=== PATIENT | female | born 1960 | race Caucasian/White ===

== ENCOUNTER → 2019-08-26 | Outpatient (CLI) | payer MEDICARE, MEDICAID ==
[~2019-08-26] MED LIST: ALBU2.5V8 INH; ESCITALOPRAM OX20 MG PO; FLUT1DIS3 IH; LATA2.5D2 OP; NORT25CA PO
== END | disposition home or self-care (01) ==
LOC: LAB 11:53
PROVIDERS: ATTEND Internal Medicine Gastroenterology
DX: Z11.59 Encounter for screening for other viral diseases (principal)
CPT/HCPCS: U0003-CS

== ENCOUNTER → 2019-08-29 | Day surgery (SDC) | payer MEDICARE, MEDICAID ==
[~2019-08-29] MED LIST changes: +IV RINGERS,LACTATED 1000ML 1,000 ML IV ONE; +PROPOFOL 10 MG/ML (20ML) VIAL. IV ONE
[2019-08-29 13:33] VITALS: BP 116/68
--- NOTE | 2019-09-02 18:06 | PATHOLOGY ---
[facility] Accession Number: [id number] . 01 Material submitted: . colon - RANDOM COLON BX . 01 Clinical history: . Abd. pain . 02 Diagnosis: Colonic mucosa, random colon biopsies: - No significant pathologic abnormalities. (JPM:gwendolyn; 09/02/2019) S 09/02/2019 1530 Local . 02 Comment: Sections of the random colon biopsy reveal multiple segments of colonic mucosa containing a few mucosal-associated lymphoid aggregates. There is no evidence of chronic destructive colitis, lymphocytic colitis, or collagenous colitis. (JPM:gwendolyn; 09/02/2019) . 02 Electronically signed: . Blue Hall MD, Pathologist NPI- [id number] . 01 Gross description: . The specimen is received in formalin, labeled "Chantal, Best, random colon biopsy" and consists of multiple fragments of arechiga tissue measuring 1.9 x 0.6 x 0.2 cm in aggregate which are entirely submitted in A1. ([facility]; 08/29/2019) JFQ/JFQ 08/29/2019 1740 Local . 02 Pathologist provided ICD-10: R10.9 . 02 CPT . 372913 Specimen Comment: A courtesy copy of this report has been sent to [phone] Specimen Comment: [id number] Specimen Comment: Report sent to / DR SOLIZ Performed at: 01 [facility] [address], [place] [id number] MD Cristóbal Youssef MD Phone: [phone] Performed at: 02 [facility] [address] [place], [place] [id number] MD Blue Hall MD Phone: [phone]
== END ==
LOC: ENDOS 11:17
PROVIDERS: ATTEND Internal Medicine Gastroenterology
DX: R10.11 Right upper quadrant pain (principal); K63.89 Other specified diseases of intestine; K64.0 First degree hemorrhoids; Z88.6 Allergy status to analgesic agent; Z88.0 Allergy status to penicillin; Z88.8 Allergy status to other drugs, medicaments and biological substances
CPT/HCPCS: 45380; 88305; J2704

== ENCOUNTER → 2019-10-03 | Outpatient (CLI) | payer MEDICARE, MEDICAID ==
[2019-08-29 13:33] VITALS: BP 116/68
[~2019-10-03] VITALS: Ht 149.9 cm; Wt 57.6 kg
[~2019-10-03] MED LIST changes: -IV RINGERS,LACTATED 1000ML 1,000 ML IV ONE; -PROPOFOL 10 MG/ML (20ML) VIAL. IV ONE; +SINCALIDE 1.15 MCG in IV NORMAL SALINE 50ML 30 ML IV ONE
--- NOTE | 2019-10-03 09:39 | RAD ---
Clinical Indication: Postprandial nausea and vomiting for 5 months. Findings: Duplex sonography of the superior mesenteric artery and the celiac artery and the abdominal aorta including cid scale and color flow and spectral waveform analysis was performed. Biphasic waveforms are seen. Superior mesenteric artery Proximal aspect: Peak systolic flow velocity 152 cm/sec Midaspect: Peak systolic flow velocity 219 cm/sec Distal aspect: Peak systolic flow velocity 214 cm/sec Celiac artery: Peak systolic flow velocity 158 cm/sec Abdominal aorta: Peak systolic flow velocity 77 cm/sec No focal aneurysmal dilatation of the abdominal aorta is seen. Therefore, the peak systolic flow velocity ratio of the superior mesenteric artery with respect to the aorta is 2.8. Normal is less than 3.0. Therefore, the peak systolic flow velocity ratio of the celiac artery with respect to the aorta is 2.1. Normal is less than 3.0. Impression: No occlusion or flow-limiting stenosis is identified. Electronically signed by: Bird Noble MD (10/03/2019 9:36 AM) [id number]
--- NOTE | 2019-10-03 10:20 | RAD ---
NM HEPATOBILIARY SCAN W PHARM History: Right upper quadrant pain. Comparison: Nausea and vomiting. Right upper quadrant pain. Technique: 5.5 mCi technetium 99m Choletec was administered intravenously and spot views were obtained on the gamma camera for a Nuclear Medicine hepatobiliary scan. 1.15 mcg of CCK drip was administered over 30 minutes and the region of interest was drawn around the gallbladder and gallbladder ejection fraction was calculated. Findings: There is rapid uptake of activity from the blood pool and concentration in the liver. Activity seen in the gallbladder at 20 minutes and small bowel at 55 minutes. There is a rapid response of the gallbladder to CCK and the gallbladder ejection fraction is 67% which is normal. Impression: 1. Normal hepatobiliary scan. Normal gallbladder ejection fraction. Electronically signed by: Isidoro Marshall DO (10/03/2019 10:17 AM) [id number]
== END | disposition home or self-care (01) ==
LOC: US 06:29
PROVIDERS: ATTEND Internal Medicine Gastroenterology
DX: R11.2 Nausea with vomiting, unspecified (principal); R10.11 Right upper quadrant pain
CPT/HCPCS: 76770; 78227; A9537; J2805

== ENCOUNTER → 2019-10-28 | Outpatient (CLI) | payer MEDICARE, MEDICAID ==
[2019-08-29 13:33] VITALS: BP 116/68
[~2019-10-28] MED LIST changes: +OXYC1TAB15 PO; -SINCALIDE 1.15 MCG in IV NORMAL SALINE 50ML 30 ML IV ONE
== END | disposition home or self-care (01) ==
LOC: LAB 13:39
PROVIDERS: ATTEND Surgery
DX: Z20.828 Contact with and (suspected) exposure to other viral communicable diseases (principal)
CPT/HCPCS: U0003-CS

== ENCOUNTER 2019-10-31 06:04 | Day surgery (SDC) | payer MEDICARE, MEDICAID ==
[~2019-10-31] VITALS: Ht 162.6 cm; Wt 53.5 kg
[~2019-10-31 06:04] MED LIST changes: +ACETAMINOPHEN 500 MG TABLET PO PRN; +CLINDAMYCIN 900MG PREMIX 50 ML IV PRN; -OXYC1TAB15 PO
[2019-10-31] MEDS ORDERED: IV RINGERS,LACTATED 1000ML 1,000 ML IV SCH (07:00)
[2019-10-31] MEDS ORDERED: ONDANSETRON PF 4 MG/2 ML VIAL. IV PRN (07:00)
[2019-10-31] MEDS ORDERED: HYDROmorphone 2 MG/ML VIAL IV PRN (07:00)
[2019-10-31] MEDS ORDERED: MORPHINE SULFATE 2 MG/ML VIAL. IV PRN (07:00)
[2019-10-31] MEDS ORDERED: LIDOCAINE 1% PF 2 ML VIAL. ID PRN (07:00)
[2019-10-31] MEDS ORDERED: fentaNYL PF VIAL 100 MCG/2 ML VIAL IV PRN ×2 (07:00)
[2019-10-31] MEDS ORDERED: PROCHLORPERAZINE 10 MG/2 ML VIAL. IV PRN (07:00)
[2019-10-31] MEDS ORDERED: BUPIVACAINE-EPI 0.5%-1:200000 MPF 30 ML VIAL. ONE (07:27)
[2019-10-31] MEDS ORDERED: IOHEXOL 300 MG/ML 50 ML VIAL. ONE (07:27)
[2019-10-31] MEDS ORDERED: ROCURONIUM 50 MG/5 ML VIAL. ONE (07:28)
[2019-10-31] MEDS ORDERED: KETOROLAC 30 MG/ML VIAL. ONE (07:28)
[2019-10-31] MEDS ORDERED: LIDOCAINE 2% PF 5 ML VIAL. ONE (07:28)
[2019-10-31] MEDS ORDERED: PROPOFOL 10 MG/ML (20ML) VIAL. IV ONE (07:28)
[2019-10-31] MEDS ORDERED: PROPOFOL 50 ML IV ONE (07:28)
[2019-10-31] MEDS ORDERED: MIDAZOLAM HCL/PF 2 MG/2 ML VIAL. ONE (07:28)
[2019-10-31] MEDS ORDERED: SURGICEL HEMOSTAT 4X8 EACH. ONE (07:28)
[2019-10-31] MEDS ORDERED: ONDANSETRON PF 4 MG/2 ML VIAL. ONE (07:28)
[2019-10-31] MEDS ORDERED: REMIFENTANIL 1 MG VIAL. IV ONE (07:31)
[2019-10-31] MEDS ORDERED: FAMOTIDINE 20 MG/2 ML VIAL ONE (07:35)
[2019-10-31] MEDS ORDERED: PHENYLEPHRINE 10 MG/ML VIAL. ONE (07:35)
[2019-10-31] MEDS ORDERED: GLYCOPYRROLATE 1 MG/5 ML VIAL. ONE (08:04)
[2019-10-31] MEDS ORDERED: NEOSTIGMINE METHYLSULFATE 5 MG/5 ML SYRINGE. ONE (08:04)
--- NOTE | 2019-10-31 08:33 | PDOC4 ---
Operative Note Operative Note Date: October 31, 2019 at 08 30 Preoperative diagnosis: Biliary dyskinesia Postoperative diagnosis: Same Procedure: Laparoscopic cholecystectomy Specimen: Gallbladder Dictation: Patient is 59-year-old female with right upper quadrant abdominal pain and an abnormal HIDA scan. Procedure of laparoscopic cholecystectomy was explained to the patient detail risk benefits were also discussed including bleeding infection injury to intra-abdominal contents possible necessitating further or open operations alternatives to this procedure also discussed with the patient who seemed to understand and gave both verbal and written consent to have the procedure performed. Patient was taken to the operating room placed in the supine position general anesthesia was initiated once patient was sleeping intubated her abdomen was prepped and draped usual sterile fashion using ChloraPrep. An area just below the umbilicus was injected with half percent Marcaine with epinephrine incision was made 11 blade scalpel and a varies needle was placed within the abdomen creating pneumoperitoneum once this was complete the millimeter port was placed and a 5 mm camera was placed within the abdomen was noted that she had quite a few adhesions to the anterior abdominal wall around the umbilicus area and in the right upper quadrant 5 mm port was placed in the epigastrium a 5 mm port was placed in the right midabdomen and a 5 mm port was placed in the right lateral abdomen. Some of adhesions around the umbilicus were taken down with sharp dissection. The dome of the gallbladder is grasped retracted cephalad the infundibulum the gallbladder is grasped tract and laterally exposing the triangle that here tissues of the triangle were taken down with blunt dissection exposing the cystic duct and cystic artery both were doubly clipped and transected the gallbladder is taken off the liver with hook electrocautery placed in Endo Catch bag removed and the umbilicus right upper quadrant was irrigated suctioned dry hemostasis deemed to be appropriate the pneumoperitoneum was reduced all ports were removed the fascial defect at the umbilicus was closed with a [id number] 0 Vicryl suture and the skin was reapproximated all port sites for subcuticular Monocryl Mastisol Steri-Strips and island dressings were applied. Patient was awakened and extubated in the operating room taken to recovery in stable condition all sponge instrument needle counts listed as correct estimated blood loss 5 mL MONY CARDONA MD Oct 31, 2019 08:33
--- NOTE | 2019-10-31 08:35 | DISCH ---
DISCHARGE INSTRUCTIONS Condition on Discharge Condition on Discharge: Stable Activity After Discharge Activity Instructions for Disc: Avoid exertion Other activity instructions: No lifting more than 20 pounds for 2 weeks Diet after Discharge Diet after Discharge: Low Fat Wound Incision Care Other wound/incision instructi: May shower in 24 hours Contacting the after DC Call your doctor for: If your condition worsens Follow-Up Follow up with: Dr. Cardona in 2 weeks MONY CARDONA MD Oct 31, 2019 08:35
[2019-10-31] MEDS ORDERED: oxyCODONE/APAP 5/325 1 TAB TABLET ONE (08:51)
[2019-10-31] MEDS ORDERED: fentaNYL PF VIAL 100 MCG/2 ML VIAL ONE (08:52)
[2019-10-31] MEDS ORDERED: PROCHLORPERAZINE 10 MG/2 ML VIAL. ONE (08:53)
[2019-10-31] MEDS ORDERED: oxyCODONE/APAP 5/325 1 TAB TABLET PO ONE (09:00)
[2019-10-31] MEDS ORDERED: OXYC1TAB15 PO (09:02)
[2019-10-31 09:30] VITALS: BP 136/68
--- NOTE | 2019-11-05 11:07 | PATHOLOGY ---
[facility] Accession Number: [id number] . 01 Material submitted: . gallbladder - GALLBLADDER . 01 Clinical history: . BILIARY DYSKENSIA . 02 Diagnosis: Gallbladder, excision: - Mild chronic cholecystitis; negative for malignancy. (MLK/db; 11/01/2019) LBQ 11/01/2019 1737 Local . 02 Electronically signed: . Tiki Duong MD, Pathologist NPI- [id number] . 01 Gross description: . Received in formalin labeled "Chantal, Best, gallbladder" is an intact cholecystectomy specimen measuring 7.0 x 3.7 x 2.8 cm. The serosa is arechiga-green and smooth and the specimen is opened to reveal green-brown velvety mucosa without polyps or masses. The average wall thickness is 0.1 cm. Calculi are not present. Commercial Artist sections of the fundus and body and the cystic duct margin are submitted in A1. ([facility]; 10/31/2019) [facility] 10/31/2019 1709 Local . 02 Pathologist provided ICD-10: K81.1 . 02 CPT . 673643 Specimen Comment: A courtesy copy of this report has been sent to [phone] Specimen Comment: [phone] Specimen Comment: Report sent to / Performed at: 01 [facility] [address], [place] [id number] MD Cristóbal Youssef MD Phone: [phone] Performed at: 02 [facility] [address] [place], [place] [id number] MD Blue Hall MD Phone: [phone]
== END 2019-10-31 09:46 | disposition home or self-care (01) ==
LOC: SURG 06:04
PROVIDERS: ATTEND Surgery
DX: K81.1 Chronic cholecystitis (principal); K82.8 Other specified diseases of gallbladder; Z88.0 Allergy status to penicillin; Z88.8 Allergy status to other drugs, medicaments and biological substances; Z79.899 Other long term (current) drug therapy
CPT/HCPCS: 47562; A7015; J0780; J1885; J2250; J2370; J2405; J2704; J2710; J3010; J3490; J7030; Q9967

== ENCOUNTER → 2020-03-18 | Outpatient (CLI) | payer MEDICARE, MEDICAID ==
[~2020-03-18] MED LIST changes: -ACETAMINOPHEN 500 MG TABLET PO PRN; -CLINDAMYCIN 900MG PREMIX 50 ML IV PRN; +CYCL10TA2 PO; +DICY10CA3 PO; +HYDR-2765 PO; +IOHEXOL 180 MG/ML 10 ML VIAL. INT ART ONE; +OXYC1TAB15 PO; +PROM25TA10 PO
--- NOTE | 2020-03-18 13:45 | RAD ---
EXAM: Fluoroscopically guided right shoulder injection for CT arthrography. HISTORY: 59-year-old woman with right shoulder pain. TECHNIQUE: The risks and benefits of the procedure were discussed with the patient and written and ve rbal consent were obtained. A time out procedure was performed. Fluoroscopic imaging of the right shoulder was performed. The overlying skin was sterilely prepped an d infiltrated with 1% lidocaine for local anesthesia. A 22-gauge spinal needle was then advanced into the joint space under fluoroscopic guidance. Intra-articular positioning was confirmed with a small injection of iodinated contrast. 12 mL of 1:1 dilution of Omnipaque 180 contrast with saline was in jected under fluoroscopic control. The joint capsule was further distended with room air. Instrumenta tion was withdrawn and a sterile dressing placed. There were no immediate complications. The patient was transferred to the CT suite for additional imaging. Fluoroscopy time 0.6 minutes. 6 images were o btained. Refer to the CT report for additional detail. IMPRESSION: Successful fluoroscopically guided right shoulder injection for MR arthrography. Please r efer to the separate CT report for additional detail. Electronically signed by: Sofia Maynard MD (03/18/2020 1:43 PM) [id number]
--- NOTE | 2020-03-18 17:29 | RAD ---
PROCEDURE: CT arthrogram Right Shoulder without IV contrast INDICATION: Reason: right shoulder pain . COMPARISON: Earlier same day right shoulder contrast injection TECHNIQUE: Axial CT of the right shoulder was performed following preprocedural intra-articular admin istration of iodinated contrast. Multiplanar reformats were then performed and reviewed. All CT scans performed at this facility utilize dose optimization techniques as appropriate to the exam, includin g the following: Automated exposure control and adjustment of the mA and/or KV according to patient s ize (this includes techniques or standardized protocols for targeted exams where dose is indication/r ariel for exam). IV CONTRAST: Not administered. However intra-articular contrast was administered and is reported sepa rately. FINDINGS: OSSEOUS: No evidence of fracture, dislocation, or bone destruction. No infiltrative marrow processes are identified. SUPRASPINATUS TENDON: Unremarkable. INFRASPINATUS TENDON: Unremarkable. SUBSCAPULAR TENDON: Unremarkable. TERES MINOR TENDON: Unremarkable. ROTATOR CUFF MUSCLES: Normal muscle bulk. No fatty infiltration identified. LONG HEAD BICEPS TENDON: Tendon is unremarkable and well positioned in the intertubercular groove wit h normal insertion upon the glenoid labrum. Some injection related contrast material is present along its intra-articular superficial fibers. GLENOID LABRUM: A posterior-inferior labral tear is apparent, best illustrated on axial image 34 seri es 3. There is also chondromalacia in the articular surface of the glenoid rim posteriorly, associate d with a small posterior inferior subchondral cyst. No significant paralabral cyst. GLENOID JOINT: No loose bodies. ACROMIOCLAVICULAR JOINT: Mild degenerative changes at the acromioclavicular joint with subchondral cy stic formation present at the superior aspect of the acromial margin. DELTOID MUSCLE: Unremarkable. OTHER: The included lungs show mild centrilobular pattern emphysema and poorly defined centrilobular nodules and groundglass opacities IMPRESSION: 1. Posterior labral tear and minimal early degenerative changes in the right glenohumeral and acromio clavicular joints. 2. There is no evidence of a full-thickness rotator cuff tear. CT is limited in evaluation for tendin opathy or tendinosis. 3. Incidental mild centrilobular emphysema and ill-defined groundglass nodules in the visualized lung s, suggesting possible hypersensitivity pneumonitis or respiratory bronchiolitis. Correlate clinicall y. Electronically signed by: Sofia Maynard MD (03/18/2020 5:27 PM) [id number]
== END | disposition home or self-care (01) ==
LOC: RAD 09:18
PROVIDERS: ATTEND Orthopaedic Surgery
DX: M25.511 Pain in right shoulder (principal); J44.9 Chronic obstructive pulmonary disease, unspecified; M19.90 Unspecified osteoarthritis, unspecified site; F41.9 Anxiety disorder, unspecified; F32.9 Major depressive disorder, single episode, unspecified; Z90.710 Acquired absence of both cervix and uterus; Z98.51 Tubal ligation status; Z98.890 Other specified postprocedural states; Z79.899 Other long term (current) drug therapy; Z87.891 Personal history of nicotine dependence; Z88.0 Allergy status to penicillin; Z88.1 Allergy status to other antibiotic agents; Z88.8 Allergy status to other drugs, medicaments and biological substances
CPT/HCPCS: 20605; 20610; 73201; 77002

== ENCOUNTER → 2020-05-14 | Outpatient (CLI) | payer MEDICARE, MEDICAID ==
[~2020-05-14] MED LIST changes: -IOHEXOL 180 MG/ML 10 ML VIAL. INT ART ONE
== END ==
LOC: LAB 13:16
PROVIDERS: ATTEND Orthopaedic Surgery
DX: Z01.812 Encounter for preprocedural laboratory examination (principal); Z20.822 Contact with and (suspected) exposure to COVID-19; M24.111 Other articular cartilage disorders, right shoulder; M75.41 Impingement syndrome of right shoulder
CPT/HCPCS: U0003

== ENCOUNTER 2020-05-18 05:57 | Day surgery (SDC) | payer MEDICARE, MEDICAID ==
[~2020-05-18] VITALS: Ht 154.9 cm; Wt 47.2 kg
[~2020-05-18 05:57] MED LIST changes: -PROM25TA10 PO
[2020-05-18] MEDS ORDERED: fentaNYL PF VIAL 100 MCG/2 ML VIAL IVP PRN (06:00)
[2020-05-18] MEDS ORDERED: PROCHLORPERAZINE 10 MG/2 ML VIAL. IVP PRN (06:00)
[2020-05-18] MEDS ORDERED: IV RINGERS,LACTATED 1000ML 1,000 ML IV SCH (06:00)
[2020-05-18] MEDS ORDERED: HYDROmorphone 2 MG/ML VIAL IVP PRN (06:00)
[2020-05-18] MEDS ORDERED: CLINDAMYCIN 900MG PREMIX 50 ML IV PRN (06:00)
[2020-05-18] MEDS ORDERED: MORPHINE SULFATE 2 MG/ML VIAL. IVP PRN (06:00)
[2020-05-18] MEDS ORDERED: LIDOCAINE 2% PF 5 ML VIAL. ONE ×2 (06:40→06:54)
[2020-05-18] MEDS ORDERED: PROPOFOL 10 MG/ML (20ML) VIAL. IV ONE (06:40)
[2020-05-18] MEDS ORDERED: MIDAZOLAM HCL/PF 2 MG/2 ML VIAL. ONE (06:41)
[2020-05-18] MEDS ORDERED: fentaNYL PF VIAL 100 MCG/2 ML VIAL ONE ×2 (06:41→09:16)
[2020-05-18] MEDS ORDERED: ROCURONIUM 100 MG/10 ML VIAL. ONE (06:46)
[2020-05-18] MEDS ORDERED: EPINEPHrine VIAL 30 MG/30 ML VIAL ONE (07:03)
[2020-05-18] MEDS ORDERED: BUPIVACAINE-EPI 0.25% 30 ML VIAL KIT. ONE ×2 (07:03→07:04)
[2020-05-18] MEDS ORDERED: REMIFENTANIL 2 MG VIAL. IV ONE (07:09)
[2020-05-18] MEDS ORDERED: PHENYLEPHRINE 10 MG/ML VIAL. ONE ×2 (07:44)
[2020-05-18] MEDS ORDERED: PROPOFOL 0 ML IV ONE (08:27)
[2020-05-18] MEDS ORDERED: PHENYLEPHRINE in 0.9% NACL PF 1 MG/10 ML SYRINGE. IV ONE ×2 (08:28→09:06)
[2020-05-18] MEDS ORDERED: PROPOFOL 50 ML IV ONE ×2 (08:28)
[2020-05-18] MEDS ORDERED: ONDANSETRON PF 4 MG/2 ML VIAL. ONE (08:28)
[2020-05-18] MEDS ORDERED: NEOSTIGMINE METHYLSULFATE 5 MG/5 ML SYRINGE. ONE (08:46)
[2020-05-18] MEDS ORDERED: GLYCOPYRROLATE 1 MG/5 ML VIAL. ONE (08:46)
[2020-05-18] MEDS: fentaNYL PF VIAL 100 MCG/2 ML VIAL IVP PRN ×2 (09:30→09:41)
--- NOTE | 2020-05-18 09:38 | PDOC4 ---
Operative Note Operative Note Date of Procedure: May 18, 2020 Pre-Op Diagnosis: * Impingement syndrome of right shoulder - M75.41 * Other specified disorders of tendon, right shoulder (tendonitis) M67.813 * Degenerative tear of glenoid labrum of right shoulder - M24.111 * Primary osteoarthritis, right shoulder - M19. 011 Post-Op Diagnosis: * Impingement syndrome of right shoulder - M75.41 * Other specified disorders of tendon, right shoulder (tendonitis) M67.813 * Degenerative tear of glenoid labrum of right shoulder - M24.111 * Primary osteoarthritis, right shoulder - M19. 011 Procedure: * Arthroscopy, right shoulder, surgical decompression of subacromial space, with partial acromioplasty CPT 88392 * Arthroscopy, surgical; debridement, extended, 3 or more discrete structures, including osterior, anterior and superior labrum (SLAP lesion) and debridement of biceps tendon and debridement of rotator cuff CPT 16041 * Arthroscopy, right shoulder, surgical; distal claviculectomy 10 mm, including distal articular surface (Yanick procedure) CPT 01005 Surgeon: Val Brownlee MD Edge [employer] Offbearer: SAMIA Cabello Anesthesia: General EBL: 50 mL Specimens Obtained: none Complications: none Drains: none Findings: The glenohumeral joint showed degenerative labral tearing of the superior, anterior, and posterior labrum which was debrided, and was not amenable to a repair. There was minimal bicipital tenosynovitis, amenable to arthroscopic debridement which was performed. There was a normal-appearing rotator cuff from the articular view with no detachment or significant tendinitis. The subacromial space showed extensive bursitis. There was diffuse and extensive superficial rotator cuff tendinitis, which did not appear amenable to any type of repair and which was debrided with the shaver. There was extensive impingement and a very prominent anterior acromion, and a very arthritic acromioclavicular joint which was also successfully decompressed to alleviate further tendon compromise. Indications for Procedure: This 59-year-old woman has persistent shoulder pain despite nonoperative treatment. Her CT scan shows a posterior labral tear and acromioclavicular joint osteoarthritis, and she has impingement syndrome. We reviewed her report together and discussed the natural history of the condition along with risks, benefits, and alternatives to treatment. Given her failure of more conservative measures and likely continued pain without intervention, my recommendation is surgery. Plan for right shoulder arthroscopy with probable subacromial decompression and distal clavicle excision as well as posterior labrum debridement or repair. Rotator cuff repair may be possible depending on intraoperative findings. We discussed the potential risks of infection, neurovascular injury, fracture, bleeding, need for revision surgery, or other potential surgical or anesthetic complications. We also discussed healing expectations including potential postoperative use of DonJoy sling, need for physical therapy, and refrain from overhead lifting for 3 months. I described that this is a more difficult surgery for patients and she may take up to a year to heal. Procedure in Detail: The patient was identified in the preoperative holding area. The correct right shoulder was marked by me. The patient was taken to the operating room where general anesthesia was used. The patient was positioned in the beachchair position with the bony prominences well-padded and the eyes protected. Preoperative antibiotics were given intravenously. A timeout procedure was performed. Under sterile technique 20 mL of bupivacaine with epinephrine was injected into the subacromial space and glenohumeral joint. The limb was then thoroughly prepared with surgical ChloraPrep solution circumferentially. Sterile waterproof arthroscopy shoulder drapes were applied, along with an impervious stockinette over the arm, and a Spider arm parks. Posterior, posterolateral, lateral, and anterior arthroscopy portals were used. The glenohumeral joint shows mild degenerative changes of the glenoid articular cartilage. There are extensive degenerative tears of the anterior labrum, posterior labrum, and superior labrum. Extensive shaving debridement was performed, and there was no repairable tear. The biceps tendon showed mild tendinitis, and shaving debridement was performed without extensive tendon removal, and therefore no need for biceps tenodesis. The rotator cuff showed an intact insertion at the greater tuberosity with no evidence of distal tendinitis or detachment or evidence of cuff tear, and no marker suture was used. The more proximal tendon and muscle did have some degenerative fraying and shaving debridement was performed slightly proximal to the muscle tendon junction. The subacromial space was entered. The anterior acromion was very prominent. The [employer] Edge thermal energy bipolar device was used for hemostasis and to resect the undersurface periosteum exposing the prominent anterior acromion. There was extensive inflamed bursa. A 6.0 mm oval kisha was used for the acromioplasty. A three-stage acromioplasty was performed, with the kisha first la terally, removing anterior acromion, using the distal clavicle as a reference. The kisha was then placed in the posterior portal, and a cutting block technique was used for smoothing of the lateral edge of the acromion tapering the anterior acromion into a Bigliani type I configuration. Final smoothing of the acromion was performed with the kisha again in the lateral portal, and direct arthroscopic visualization. The previously very tight subacromial space was now nicely decompressed. This completes CPT 10324, subacromial decompression and acromioplasty. The distal clavicle was arthritic and prominent. The motorized bur was used to remove 10 mm of distal clavicle bone, including the entire articular surface of the distal clavicle. The thermal energy device was used for hemostasis. The rotator cuff was examined after resection of bursa. There is extensive partial-thickness tendinitis and superficial tears of the entire supraspinatus and infraspinatus tendon, without any detachment, and without ability to perform a suture repair. The decompression should help alleviate the cause of these changes, and ultimately the tendon should be able to heal, but this may take many months for pain to resolve because of the extensive but broad area of tendon abrasion. Copious saline irrigation was used. The arthroscopic instruments were removed and the shoulder was drained of fluid. My assisant repaired the skin with #3-0 Prolene. He injected an additional 30 mL of bupivacaine with epinephrine. He placed Xeroform and bulky sterile dressings. He then applied a and arm sling. There were no apparent complications. Needle and sponge counts were correct. VAL BROWNLEE MD May 18, 2020 09:38
[2020-05-18] MEDS ORDERED: oxyCODONE/APAP 5/325 1 TAB TABLET PO ONE ×2 (10:00)
[2020-05-18] MEDS ORDERED: PROM25TA10 PO (10:01)
[2020-05-18] MEDS ORDERED: OXYC1TAB15 PO (10:02)
[2020-05-18 10:16] VITALS: BP 105/53
== END 2020-05-18 11:05 | disposition home or self-care (01) ==
LOC: SURG 05:57
PROVIDERS: ATTEND Orthopaedic Surgery
DX: M75.41 Impingement syndrome of right shoulder (principal); M67.813 Other specified disorders of tendon, right shoulder; M24.111 Other articular cartilage disorders, right shoulder; M19.011 Primary osteoarthritis, right shoulder; I10 Essential (primary) hypertension; J44.9 Chronic obstructive pulmonary disease, unspecified; F41.9 Anxiety disorder, unspecified; F32.9 Major depressive disorder, single episode, unspecified; Z90.49 Acquired absence of other specified parts of digestive tract; Z98.890 Other specified postprocedural states; Z79.899 Other long term (current) drug therapy; Z87.891 Personal history of nicotine dependence; Z72.89 Other problems related to lifestyle; Z88.0 Allergy status to penicillin; Z88.1 Allergy status to other antibiotic agents; Z88.8 Allergy status to other drugs, medicaments and biological substances
CPT/HCPCS: 29823; 29824; 29826; A4213; A4565; A4928; A4930; J0171; J2250; J2370; J2405; J2704; J2710; J3010; J3490; A4222; A4223; A4452; A4618; A4623

== ENCOUNTER → 2020-10-21 | Outpatient (CLI) | payer MEDICARE, MEDICAID ==
[~2020-10-21] MED LIST changes: +IOHEXOL 180 MG/ML 10 ML VIAL. ONE; +PROM25TA10 PO; +methylPREDNISolone ACETATE 80 MG/ML VIAL. ONE
--- NOTE | 2020-10-21 12:09 | PDOC1 ---
INITIAL PAIN CONSULT DATE OF SERVICE: DOS: DATE: 10/21/20 TIME: 12:02 CHIEF COMPLAINT: Chief Complaint: Neck and right upper extremity pain HISTORY OF PRESENT ILLNESS: 60-year-old female presents history of pain in the base the neck and right upper extremity for approximately 4 months not resolve any specific injury or accident that she is aware but getting gradually worse over time and is been radiating into the right upper extremity mostly in the anterior deltoid anterior biceps also the posterior triceps and into the shoulder blade on the right side as well as into the forearm both anteriorly and posteriorly with numbness and tingling in all the fingers on the right side patient reports is worse with repetitive motions reaching, lifting items, reaching her hand over her right head and weightbearing. Patient reports no obvious motor loss but significant fatigability the right arm compared to the left. Patient reports constant sharp stabbing throbbing and shooting in the right arm tingling and numbness in the right hand with radiating pain in the arm aching and cold sensation at times the base of neck and shoulder sometimes worse at the end of the day or at night patient reports it wakes her from sleep about 3 times a night does not affect her bowel bladder control does affect her ability to walk patient reports she has had previous treatment in [place] with good response epidural injections also has had physical therapy chiropractic treatment has had counseling and exercise she still doing exercises she learned in physical therapy has not had any formal therapy recently patient is taking nortriptyline which does decrease the pain is taking that just at night. Patient rates her disability rating 0-10 10 being the worst is an 8 with family responsibilities and recreation 6 with social act ivity 7 with self-care and 6 of life support activities. Patient had a CT scan of the cervical spine showing moderate bilateral neuroforaminal narrowing at C4- 5 moderate left neuroforaminal narrowing C5-6. PAST MEDICAL HISTORY: PMH: Dizziness, cigarette smoking, osteoporosis, vertigo PREVIOUS SURGERIES: Past Surgical Hx: Lumbar spinal cord stimulator placement 2015 Hysterectomy 1988 Cervical discectomy 2012 Cholecystectomy 2019 Right shoulder scope 2020 Appendectomy 1991 CURRENT MEDICATIONS: Current Meds: Active Scripts Medications Dose Route/Sig Max Daily Dose Days Date Category Dicyclomine Hcl 10 Mg Capsule 10 Mg PO BID 05/14/20 Reported Proair Hfa Inhaler (Albuterol Sulfate) 8.5 Gm Hfa.aer.ad 1 Puff INH PRN Q6HRS PRN 08/29/19 Reported Xalatan (Latanoprost) 2.5 Ml Drops 1 Drop OP HS 08/29/19 Reported Escitalopram Oxalate 20 Mg Tablet 20 Mg PO DAILY 08/29/19 Reported Nortriptyline Hcl 25 Mg Capsule 50 Mg PO HS 08/29/19 Reported ALLERGIES; Allergies: Coded Allergies: Penicillins (Verified Allergy, Severe, throat swelling, 10/21/20) tetracycline (Verified Allergy, Intermediate, Hives, 05/18/20) watermelon (Verified Allergy, Intermediate, 10/21/20) milk (Verified Adverse Reaction, Intermediate, Diarrhea, 10/21/20) aspirin (Verified Adverse Reaction, Unknown, Nausea and Vomiting, 10/21/20) prednisone (Verified Adverse Reaction, Unknown, "psychotic break", 10/21/20) FAMILY HISTORY: Family Hx: Cancers SOCIAL HISTORY: Social Hx: Patient is under alcohol smokes about 3 cigarettes a day on average and has for 20+ years patient reports he does not use any illegal illicit or recreational drugs is single has 1 child living at home lives locally in [facility]. REVIEW OF SYSTEMS: ROS: Positive for those items mentioned in history of present illness, all systems are reviewed, otherwise negative ,and are complete full and well-documented on patient's chart. PHYSICAL EXAM: VS: Blood pressure is 117/68 pulse 94 respirations 18 temperature 98.6 F height is 4 feet 11 inches weight is 93 pounds PE: PHYSICAL EXAMINATION: GENERAL: The patient is awake, alert, oriented, appropriate, very pleasant in demeanor. HEENT: Shows normocephalic, atraumatic. Extraocular movements are intact and symmetrical. Oral cavity: Mucous membranes moist and pink. Dentition is intact. NECK: Shows anterior throat supple without palpable lymphadenopathy noted. Swallow reflex symmetrical. CHEST: Shows normal on inspection. Breath sounds are clear bilaterally, no rales rhonchi or wheezes auscultated bilaterally. HEART: Shows S1, S2 clear. No murmurs auscultated. ABDOMEN: Soft, nontender, nondistended, flat. No palpable organomegaly is noted. No rebound or guarding demonstrated. BACK: Shows spine grossly in the midline. Normal-appearing cervical lordotic curvature. Cervical paraspinous muscles show symmetrical with inspection, on palpation some moderate tenderness diffusely bilaterally diffusely without significant radiation. Patient has good rotation motion cervical spine with some moderate tenderness with far right lateral rotation past 45 degrees but not left. Patient shows full rotation with extension and forward flexion with minor tenderness with forward flexion in the right base of the neck only. There is slightly increased thoracic kyphosis, some minor flattening of the lumbar lordotic curvature. EXTREMITIES: Upper extremities show deep tendon reflexes 2+ in the biceps and triceps tendons. 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 Peripheral pulses are 2+ radial. No peripheral edema is noted bilaterally. Upper extremities are warm and dry to touch, equal in color and appearance. Shoulder shrug strong intact without loss of strength on resistance bilaterally as is abduction of the shoulders 90 degrees without loss of strength on resistance. SKIN: Shows warm and dry, good turgor. No edema. No sores, rashes or bruising throughout. IMPRESSION: Impression: 60-year-old female with approximate 4-month history of pain base of neck right upper extremity in a radicular fashion. CT scan cervical spine as noted History of osteoporosis Dizziness Cigarette smoking Asthma Plan: Options were discussed with the patient including conservative management physical therapies interventional techniques. Patient would like to proceed with techniques. We discussed a cervical epidural steroid injections description as well as anatomical models described the procedure. Risks were discussed including but not limited to: Bleeding, infection, possibility of epidural hematoma and subsequent neurological compromise, dural puncture, headaches, spinal cord and/or nerve damage, side effects of steroid medication, and poor results regarding pain control. Patient understands and wished to proceed. Patient will return to the clinic in approximately 2 weeks for follow- up, was counseled as to return appointment activity level and side effects to be aware of. Procedure cervical epidural steroid injection at the C6-7 level, using local anesthetic under sterile prep and drape using C-arm fluoroscopic guidance under local anesthesia medications injected ;120 mg Depo-Medrol +5 mL normal saline and 2 mL contrast; condition at discharge is stable patient tolerated procedure well. and had no complications JOSÉ RUIZ MD Oct 21, 2020 12:09
--- NOTE | 2020-10-21 12:09 | PDOC4 ---
Procedure Note: ICD 10 Code: ICD 10 Code: M54.12 M50.30 M 96.1 Procedure Note: Patient was consented for cervical epidural steroid injection with fluoroscopic guidance. Risks were discussed including but not limited to: Bleeding, infection, possibility of epidural hematoma and subsequent neurological compromise, dural puncture, headaches, spinal cord and/or nerve damage, side effects of steroid medication, and poor results regarding pain control. Patient understands and wished to proceed. Procedure cervical epidural steroid injection at the C6-7 level, using local a nesthetic under sterile prep and drape using C-arm fluoroscopic guidance under local anesthesia medications injected ;120 mg Depo-Medrol +5 mL normal saline and 2 mL contrast; condition at discharge is stable patient tolerated procedure well. and had no complications JOSÉ RUIZ MD Oct 21, 2020 12:09
== END | disposition home or self-care (01) ==
LOC: PNCL 10:17
PROVIDERS: ATTEND Anesthesiology
DX: M54.2 Cervicalgia (principal); M79.601 Pain in right arm; M81.0 Age-related osteoporosis without current pathological fracture; J44.9 Chronic obstructive pulmonary disease, unspecified; F41.9 Anxiety disorder, unspecified; F32.9 Major depressive disorder, single episode, unspecified; M19.90 Unspecified osteoarthritis, unspecified site; Z87.891 Personal history of nicotine dependence; Z90.710 Acquired absence of both cervix and uterus; Z90.49 Acquired absence of other specified parts of digestive tract; Z98.890 Other specified postprocedural states; Z79.899 Other long term (current) drug therapy; Z88.0 Allergy status to penicillin; Z88.1 Allergy status to other antibiotic agents; Z88.8 Allergy status to other drugs, medicaments and biological substances
CPT/HCPCS: 62321; J1040; Q9965

== ENCOUNTER → 2020-10-27 | Outpatient (CLI) | payer MEDICARE, MEDICAID ==
[~2020-10-27] MED LIST changes: +HYDR-2761 PO; -IOHEXOL 180 MG/ML 10 ML VIAL. ONE; +IOHEXOL 300 MG/ML 50 ML VIAL. IT ONE; +LIDOCAINE WITH 8.4% SOD BICARB 3 ML DISP.SYRIN. INJ ONE; +LIDOCAINE WITH 8.4% SOD BICARB 3 ML DISP.SYRIN. ONE; -methylPREDNISolone ACETATE 80 MG/ML VIAL. ONE
[2020-10-27 13:47] VITALS: BP 112/68
[2020-10-27 14:02] VITALS: BP 104/69
[2020-10-27 14:12] VITALS: BP 97/63
--- NOTE | 2020-10-27 14:15 | NUR ---
Pt completed supine recovery post myelogram. Pt tolerated without difficulty, VSS. Escorted out by wheelchair, family to drive. JUAN LEDESMA
--- NOTE | 2020-10-27 17:06 | RAD ---
PQRS Compliance Statement: One or more of the following individualized dose reduction techniques were utilized for this examinat ion: 1. Automated exposure control 2. Adjustment of the mA and/or kV according to patient size 3. Use of iterative reconstruction technique CT CERVICAL SPINE WITH IV CONTRAST, XR MYELOGRAM CERVICAL 10/27/2020 1:23 PM INDICATION: Radiculopathy of the right upper extremity COMPARISON: None available. PROCEDURE: Risks and benefits were discussed with the patient after which informed consent was obtained. Patien t was placed prone on the examination table. The L3-L4 interspace was localized under fluoroscopy. Si te was marked. Patient was prepped and draped in normal sterile fashion. 1 percent lidocaine was admi nistered for superficial anesthetic effect. A 22-gauge spinal needle was inserted into the thecal sac under fluoroscopic guidance. 10 cc Omnipaque 300 was injected into the thecal sac. Needle was remove d and compression applied for hemostasis. Patient tolerated the procedure well. No complications were identified at the time procedure. Bilateral oblique, AP and crosstable lateral views of the cervical spine were obtained. Fluoroscopy time: 2.4 minutes Number of images: 4 Subsequently, patient was transferred to the CT scanner for further imaging. Multiple axial CT images of the cervical spine were obtained after intrathecal contrast administration. FINDINGS: There is 2 mm retrolisthesis of C3 on C4. Vertebral body heights are maintained. No acute fracture is identified. Laminectomy changes are identified at C3, C4 and C5. Posterior fossa is normal in appear ance. Craniocervical junction is normal. Atlantoaxial articulation is intact. No acute fracture is id entified. There is no prevertebral edema. Mild centrilobular pulmonary emphysema. Thyroid gland is no rmal in appearance. No pathologically enlarged cervical lymph nodes. Calcified plaque identified at t he right carotid bifurcation. Cervical spinal cord is normal in morphology. C2-C3: Disc is normal in configuration. There is mild facet arthropathy. No uncovertebral joint disea se. Mild left foraminal stenosis. No spinal canal stenosis. C3-C4: This level is decompressed. Mild to moderate facet arthropathy. Mild left neuroforaminal steno sis. No spinal canal stenosis. C4-C5: There is a posterior disc osteophyte complex. Moderate facet arthropathy. Mild/moderate bilate ral neuroforaminal stenosis. No residual spinal canal stenosis status post decompression. C5-C6: There is a posterior disc osteophyte complex. Moderate facet arthropathy. Moderate left and mi ld right uncovertebral joint disease. Moderate left and mild right neuroforaminal stenosis. No residu al spinal canal stenosis. C6-C7: There is disc bulge. Mild facet arthropathy. No neuroforaminal or spinal canal stenosis. C7-T1: No significant neuroforaminal or spinal canal stenosis. IMPRESSION: Successful lumbar puncture under fluoroscopic guidance. Laminectomy decompression from C3 through C5 without residual spinal canal stenosis. Mild cervical spondylosis as described in detail above. Electronically signed by: Delmi Nguyen MD (10/27/2020 5:04 PM) [id number]
== END | disposition home or self-care (01) ==
LOC: RAD 11:41
PROVIDERS: ATTEND Neurological Surgery
DX: M47.812 Spondylosis without myelopathy or radiculopathy, cervical region (principal); M25.78 Osteophyte, vertebrae
CPT/HCPCS: 62302; 72126; J3490; Q9967

== ENCOUNTER → 2020-11-11 | Outpatient (CLI) | payer MEDICARE, MEDICAID ==
[2020-10-27 14:12] VITALS: BP 97/63
[~2020-11-11] MED LIST changes: +IOHEXOL 180 MG/ML 10 ML VIAL. ONE; -IOHEXOL 300 MG/ML 50 ML VIAL. IT ONE; -LIDOCAINE WITH 8.4% SOD BICARB 3 ML DISP.SYRIN. INJ ONE; -LIDOCAINE WITH 8.4% SOD BICARB 3 ML DISP.SYRIN. ONE; +methylPREDNISolone ACETATE 80 MG/ML VIAL. ONE
--- NOTE | 2020-11-11 11:50 | PDOC ---
Progress Note - Pain Clinic Date of Service: DOS: DATE: 11/11/20 TIME: 11:45 Diagnosis: Dx: Cervical radiculopathy with cervical degenerative disease and cervical postlaminectomy syndrome History or Present Illness: HPI: 60-year-old female returns for follow-up status post cervical epidural steroid action x1. Patient reports about 75% improved initially but now only about 20% improvement after about a week and a half following the injection patient reports doing very well originally with increased activity and weightbearing with right upper extremity reaching overhead with her right hand much easier and more comfortable and sleeping better at night patient reports her pain is 8 on scale 10 is worse over the past week 7 on average 6 its least and is a 6 today patient scribes as tingling aching and tight and constant in the base the neck and the right shoulder and arm patient reports new finding of unable to make a fist with the right hand 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 Patient reports that she is going to see a neurologist for EMG testing to better differentiate what may be causing this as is not present on previous exam. Patient reports no accident or injury to the right upper extremity as well. Overall patient feels that she is improved and was hoping that the pain relief would last longer but the combination of the pain returning and the difficulty with making a fist with her right hand is increasing the pain significantly. Physical Exam: VS: Blood pressure is 125/69 pulse 80 respirations 16 temperature 98.1 F weight is 94 pounds PE: PHYSICAL EXAMINATION: GENERAL: The patient is awake, alert, oriented, appropriate, very pleasant demeanor HEENT: Shows normocephalic, atraumatic. Extraocular movements are intact and symmetrical. Oral cavity: Mucous membranes moist and pink. Dentition is intact. NECK: Shows anterior throat supple without palpable lymphadenopathy noted. Swallow reflex symmetrical. CHEST: Shows normal on inspection. Breath sounds are clear bilaterally, distant but no rales or rhonchi. HEART: Shows S1, S2 clear. No murmurs auscultated. ABDOMEN: Soft, nontender, nondistended. No palpable organomegaly is noted. BACK: Shows spine grossly in the midline. Normal-appearing cervical lordotic curvature. Cervical paraspinous muscles show symmetrical inspection, on palpation some moderate tenderness diffusely bilaterally without significant radiation. Patient shows well-healed surgical scar in the midline as well. Rotation of the cervical spine shows moderate tenderness with right and left lateral rotation as well as extension but not with forward flexion was normal fully. There is slightly increased thoracic kyphosis, some minor flattening of the lumbar lordotic curvature. EXTREMITIES: Upper extremities show deep tendon reflexes 2+ in the biceps and triceps tendons. 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 Peripheral pulses are 2+ radial. No peripheral edema is noted bilaterally. Upper extremities are warm and dry to touch, equal in color and appearance. SKIN: Shows warm and dry, good turgor. No edema. No sores, rashes or bruising throughout. Procedure: Procedure: Options discussed with the patient. Patient chart was reviewed as her current medication regimen updated current review of systems updated today as well. We will proceed with a cervical epidural steroid injection today with fluoroscopic guidance. Risks were discussed including but not limited to: Bleeding, infection, possibility of epidural hematoma and subsequent neurological compromise, dural puncture, headaches, spinal cord and/or nerve damage, side effects of steroid medication, and poor results regarding pain control. Patient understands and wished to proceed. Patient will return to the clinic in approximate 2 weeks for follow-up, was counseled as to return appointment, activity level, and side effects to be aware of. Medication Injected: Med Injected: Procedure cervical epidural steroid injection at the C6-7 level, using local anesthetic under sterile prep and drape using C-arm fluoroscopic guidance under local anesthesia medications injected ;120 mg Depo-Medrol +5 mL normal saline and 2 mL contrast; condition at discharge is stable patient tolerated procedure well. and had no complications Condition at Discharge: Condition at Discharge: Condition at discharge is stable, patient already the procedure well and had no complications. JOSÉ RUIZ MD Nov 11, 2020 11:50
--- NOTE | 2020-11-11 11:51 | PDOC4 ---
Procedure Note: ICD 10 Code: ICD 10 Code: M54.12 M50.30 M 96.1 Procedure Note: Patient was consented for cervical epidural steroid injection with fluoroscopic guidance. Risks were discussed including but not limited to: Bleeding, infection, possibility of epidural hematoma and subsequent neurological compromise, dural puncture, headaches, spinal cord and/or nerve damage, side effects of steroid medication, and poor results regarding pain control. Patient understands and wished to proceed. Procedure cervical epidural steroid injection at the C6-7 level, using local a nesthetic under sterile prep and drape using C-arm fluoroscopic guidance under local anesthesia medications injected ;120 mg Depo-Medrol +5 mL normal saline and 2 mL contrast; condition at discharge is stable patient tolerated procedure well. and had no complications JOSÉ RUIZ MD Nov 11, 2020 11:51
== END | disposition home or self-care (01) ==
LOC: PNCL 10:47
PROVIDERS: ATTEND Anesthesiology
DX: M50.10 Cervical disc disorder with radiculopathy, unspecified cervical region (principal); M96.1 Postlaminectomy syndrome, not elsewhere classified; J44.9 Chronic obstructive pulmonary disease, unspecified; M19.90 Unspecified osteoarthritis, unspecified site; F41.9 Anxiety disorder, unspecified; F32.9 Major depressive disorder, single episode, unspecified; Z90.49 Acquired absence of other specified parts of digestive tract; Z90.710 Acquired absence of both cervix and uterus; Z98.51 Tubal ligation status; Z98.890 Other specified postprocedural states; Z79.899 Other long term (current) drug therapy; Z87.891 Personal history of nicotine dependence; Z88.0 Allergy status to penicillin; Z88.1 Allergy status to other antibiotic agents; Z88.8 Allergy status to other drugs, medicaments and biological substances; Z72.89 Other problems related to lifestyle
CPT/HCPCS: 62321; J1040; Q9965

== ENCOUNTER → 2020-11-26 | Outpatient (CLI) | payer MEDICARE, MEDICAID ==
[2020-10-27 14:12] VITALS: BP 97/63
--- NOTE | 2020-11-26 11:39 | PDOC4 ---
Procedure Note: ICD 10 Code: ICD 10 Code: M54.12 M50.30 M 96.1 Procedure Note: Patient was consented for cervical epidural steroid injection with fluoroscopic guidance. Risks were discussed including but not limited to: Bleeding, infection, possibility of epidural hematoma and subsequent neurological compromise, dural puncture, headaches, spinal cord and/or nerve damage, side effects of steroid medication, and poor results regarding pain control. Patient understands and wished to proceed. Procedure cervical epidural steroid injection at the C6-7 level, using local a nesthetic under sterile prep and drape using C-arm fluoroscopic guidance under local anesthesia medications injected ;120 mg Depo-Medrol +5 mL normal saline and 2 mL contrast; condition at discharge is stable patient tolerated procedure well. and had no complications JOSÉ RUIZ MD Nov 26, 2020 11:39
--- NOTE | 2020-11-26 11:39 | PDOC ---
Progress Note - Pain Clinic Date of Service: DOS: DATE: 11/26/20 TIME: 11:35 Diagnosis: Dx: Cervical radiculopathy with cervical degenerative disease and cervical postlaminectomy syndrome History or Present Illness: HPI: 60-year-old female returns for follow-up status post cervical epidural steroid injection November 11, 2020 patient very well with about 80% improvement initially now down about 40% improvement but states it is currently still helping with the pain in the neck and the right upper extremity patient reports is becoming more numb is having significant new findings of numbness in the right hand which coming more constant patient reports that the injection is helping the shoulder and the arm fairly well but not with the hand is much patient rates as a 7 on scale 10 is worse over the past week 7 on average 5 its least is a 7 today patient ports tingling constant the right hand aching sharp in the neck and the right upper extremity significantly improved with increased activity detailed activities travel activities and driving much easier ability and sleeping better but still wakes her from sleep at night about once to twice a night. Patient reports she did discuss the numbness and pain with her primary care physician and they are considering a neurological consultation as well. Physical Exam: VS: Blood pressure is 123/79 pulse 105 respirations 20 temperature 98.4 F weight is 90.6 pounds PE: PHYSICAL EXAMINATION: GENERAL: The patient is awake, alert, oriented, appropriate, very pleasant in demeanor HEENT: Shows normocephalic, atraumatic. Extraocular movements are intact and symmetrical. Oral cavity: Mucous membranes moist and pink. Dentition is intact. NECK: Shows anterior throat supple without palpable lymphadenopathy noted. Swallow reflex symmetrical. CHEST: Shows normal on inspection. Breath sounds are clear bilaterally, no ral es rhonchi or wheeze. HEART: Shows S1, S2 clear. No murmurs auscultated. ABDOMEN: Soft, nontender, nondistended, flat. No palpable organomegaly is noted. BACK: Shows spine grossly in the midline. Normal-appearing cervical lordotic curvature. Cervical paraspinous muscles show symmetrical inspection, palpation some moderate tenderness diffusely in the inferior aspect cervical paraspinous musculature but without radiation without trigger points. Patient shows full rotation of motion cervical spine with lateral as well as extension full forward flexion without significant pain reported. There is slightly increased thoracic kyphosis, some minor flattening of the lumbar lordotic curvature. EXTREMITIES: Upper extremities show deep tendon reflexes 2+ in the patellar and tendo calcaneus tendons. Motor exam is 4 on a scale of 5 with right dorsiflexion, extension, quadriceps and hamstring flexion and 5/5 on the left. Peripheral pulses are 2+ posterior tibial. No peripheral edema is noted bilaterally. Upper extremities are warm and dry to touch, equal in color and appearance. SKIN: Shows warm and dry, good turgor. No edema. No sores, rashes or bruising throughout. Procedure: Procedure: Options were discussed with the patient. Patient chart reviewed as her current medication regimen updated current review of systems updated today as well. We will proceed with a cervical epidural steroid traction today with fluoroscopic guidance. Risks were discussed including but not limited to: Bleeding, infection, possibility of epidural hematoma and subsequent neurological compromise, dural puncture, headaches, spinal cord and/or nerve damage, side effects of steroid medication, and poor results regarding pain control. Patient understands and wished to proceed. Patient will return to the clinic in approximate 2 weeks for follow-up, was counseled return appointment, activity level, and side effect to be aware of. Medication Injected: Med Injected: Procedure cervical epidural steroid injection at the C6-7 level, using local anesthetic under sterile prep and drape using C-arm fluoroscopic guidance under local anesthesia medications injected ;120 mg Depo-Medrol +5 mL normal saline and 2 mL contrast; condition at discharge is stable patient tolerated procedure well. and had no complications Condition at Discharge: Condition at Discharge: Condition at discharge is stable, patient tolerated the procedure well and had no complications. JOSÉ RUIZ MD Nov 26, 2020 11:39
== END | disposition home or self-care (01) ==
LOC: PNCL 10:57
PROVIDERS: ATTEND Anesthesiology
DX: M50.10 Cervical disc disorder with radiculopathy, unspecified cervical region (principal); M96.1 Postlaminectomy syndrome, not elsewhere classified; J44.9 Chronic obstructive pulmonary disease, unspecified; M19.90 Unspecified osteoarthritis, unspecified site; F41.9 Anxiety disorder, unspecified; F32.9 Major depressive disorder, single episode, unspecified; Z98.51 Tubal ligation status; Z90.710 Acquired absence of both cervix and uterus; Z98.890 Other specified postprocedural states; Z79.899 Other long term (current) drug therapy; Z90.49 Acquired absence of other specified parts of digestive tract; Z87.891 Personal history of nicotine dependence; Z72.89 Other problems related to lifestyle; Z88.0 Allergy status to penicillin; Z88.8 Allergy status to other drugs, medicaments and biological substances
CPT/HCPCS: 62321; J1040; Q9965

== ENCOUNTER → 2021-04-23 | Outpatient (CLI) | payer MEDICARE, MEDICAID ==
[2020-10-27 14:12] VITALS: BP 97/63
[~2021-04-23] MED LIST changes: +CYCL10TA19 PO; -CYCL10TA2 PO; -IOHEXOL 180 MG/ML 10 ML VIAL. ONE; -methylPREDNISolone ACETATE 80 MG/ML VIAL. ONE
== END ==
LOC: LAB 11:28
PROVIDERS: ATTEND Orthopaedic Surgery Sports Medicine
DX: Z01.812 Encounter for preprocedural laboratory examination (principal); Z20.822 Contact with and (suspected) exposure to COVID-19
CPT/HCPCS: U0003

== ENCOUNTER → 2021-04-27 | Day surgery (SDC) | payer MEDICARE, MEDICAID ==
[~2021-04-27] VITALS: Ht 157.5 cm; Wt 42.7 kg
[~2021-04-27] MED LIST changes: +BUPIVACAINE MPF 0.5% 30 ML VIAL. ONE; +CLINDAMYCIN 900MG PREMIX 50 ML IV ONE; +CLINDAMYCIN 900MG PREMIX 50 ML IV PRN; +HYDROcodone/APAP 5/325MG 1 TAB TABLET PO ONE; +HYDROmorphone 2 MG/ML INJ. IVP PRN; +IV RINGERS,LACTATED 1000ML 1,000 ML IV SCH; +KETAMINE HCL IN NACL, ISO-OSM 50 MG/5 ML SYRINGE ONE; +LIDOCAINE 1% Multi-Dose 20 ML VIAL. ONE; +LIDOCAINE 2% PF 5 ML VIAL. ONE; +MORPHINE SULFATE 2 MG/ML INJ. IVP PRN; +ONDANSETRON PF 4 MG/2 ML VIAL. ONE; +PHENYLEPHRINE 10 MG/ML VIAL. ONE; +PROCHLORPERAZINE 10 MG/2 ML VIAL. IVP PRN; +PROPOFOL 10 MG/ML (20ML) VIAL. IV ONE; +PROPOFOL 50 ML IV ONE; +fentaNYL PF VIAL 100 MCG/2 ML VIAL IVP PRN; +fentaNYL PF VIAL 100 MCG/2 ML VIAL ONE
[2021-04-27 06:53] VITALS: BP 131/65
--- NOTE | 2021-04-27 08:27 | DISCH ---
DISCHARGE INSTRUCTIONS Condition on Discharge Condition on Discharge: Stable Activity After Discharge Activity Instructions for Disc: Activity as tolerated, Avoid exertion Other activity instructions: wiggle fingers Bathing Instructions: Shower-keep dressing dry Lifting Instructions after Dis: No heavy lifting, No pulling or pushing Weight Bearing Status after Di: As tolerated Diet after Discharge Diet after Discharge: Low Fat, Regular Wound Incision Care Wound/Incision Care: Ice to area for comfort, Keep wound/cast CDI, Change dressing Other wound/incision instructi: change dressing in 2-3 days Contacting the DRDonna after DC Call your doctor for: If your condition worsens Follow-Up Follow up with: Jairon in 2 wks Treatment/Equipment after DC Adaptive Equipment Issued: None SARAY DOMINGUEZ II, MD Apr 27, 2021 08:27
[2021-04-27 10:15] VITALS: BP 112/65
--- NOTE | 2021-04-27 10:36 | PDOC4 ---
Operative Note Operative Note Date of procedure: 04/27/2021 Surgeon: Joel Dominguez Upholsterer Inside: Alfred Carlson Preoperative diagnosis: Right carpal tunnel syndrome Right cubital tunnel syndrome Postoperative diagnosis: Same Procedure performed: Open right carpal tunnel release Open right cubital tunnel release Anesthesia: General Findings: Normal-appearing median and ulnar nerves Blood loss: 10 mL Tourniquet time: 21 minutes Complications: None Reason for procedure: Patient is very pleasant individual who has had long- standing symptoms consistent with their electromyographically proven EMG di agnosis of carpal tunnel syndrome and cubital tunnel syndrome.. We had tried and failed conservative therapies and had a discussion of the risks, benefits, alternatives to the above surgery and they wished to proceed. Description of procedure: Patient was greeted in the preoperative area by myself for the correct extremity was verified and marked. They were then taken back to the operative suite, antibiotics were started as a were brought back. Once in the operating room, patient was transferred gently supine to the operating room table. The hand board attached and was applied to the operating room table. The patient underwent successful induction of general anesthetic.. The right upper extremity was then prepped and draped in our usual sterile fashion and we conducted our standard preoperative timeout.the extremity was exsanguinated with an Esmarch and tourniquet insufflated to 250 mmHg. After this, I made an incision over the transverse carpal ligament from the distal wrist crease into the palm through a palmar crease. I incised skin with a scalpel and dissected subcutaneous tissue with a curved hemostat. I used bipolar cautery for hemostasis. Identified the palmar fascia and incised this in line with the skin incision and then placed myself retaining retractor. I identified the transverse carpal ligament and incised this with a scalpel. I then placed a Ragnell retractor in the distal portion of the incision, spread above and below small remaining portion of the transverse carpal ligament and transected this with a tenotomy scissors into the palm. After this, I repeated this maneuver and an ulnar directed fashion to release the distal antebrachial fascia at the proximal portion of the incision. I then palpated along the course of the median nerve with the tip of the tenotomies to help ensure that accomplished a complete release. The operative field was then irrigated out with sterile saline. After this, skin was closed with 3-0 nylon in a mattress fashion. I then directed my attention to palpating for the medial epicondyle and brannon a straight line at the posterior aspect of this, the elbow was then flexed and shoulder externally rotated and I incised skin with a scalpel and dissected subcutaneous tissue with combination of bipolar cautery and tenotomy's. Id entified the ulnar nerve at the level of the medial epicondyle and proceeded to release the cubital tunnel until identified triceps muscle proximally. I then repeated this and released the cubital tunnel until I encountered flexor mass muscle belly distally. I then palpated along the course of the ulnar nerve to ensure that accomplished a complete release and I was confident I had. I then took the patient's elbow through full passive range of motion multiple times and noted no subluxation of the nerve. Therefore, I let tourniquet down and cauterized a couple bleeders around the skin edge and one in subcutaneous tissue. The wound was then thoroughly irrigated out. Subcutaneous tissue was closed with inverted interrupted 2-0 Vicryl followed by running 3-0 Monocryl in a buried subcuticular fashion. Local anesthetic was injected into the periincisional soft tissues. A sterile soft bulky dressing was then applied to the patient's right upper extremity consisting of Xeroform, gauze, soft roll and an Venu wrap. Patient tolerated surgery well. No complications. All counts were correct x2 prior to wound closure. At the conclusion, they were awakened and transferred gently supine to the recovery room cart and taken to the PACU in a stable and extubated condition. Postoperative plan is to discharge patient home. Frequent range of motion at digits and wrist was encouraged. The patient was instructed not to lift anything heavy. We will see her back in 2 weeks, sooner should a problem arise. JOEL DOMINGUEZ II, MD Apr 27, 2021 10:36
== END | disposition home or self-care (01) ==
LOC: SURG 06:32
PROVIDERS: ATTEND Orthopaedic Surgery Sports Medicine
DX: G56.01 Carpal tunnel syndrome, right upper limb (principal); G56.21 Lesion of ulnar nerve, right upper limb; I10 Essential (primary) hypertension; J44.9 Chronic obstructive pulmonary disease, unspecified; M19.90 Unspecified osteoarthritis, unspecified site; F41.9 Anxiety disorder, unspecified; F32.9 Major depressive disorder, single episode, unspecified; Z98.51 Tubal ligation status; Z90.49 Acquired absence of other specified parts of digestive tract; Z90.710 Acquired absence of both cervix and uterus; Z98.890 Other specified postprocedural states; Z87.891 Personal history of nicotine dependence; Z88.0 Allergy status to penicillin; Z88.1 Allergy status to other antibiotic agents; Z88.8 Allergy status to other drugs, medicaments and biological substances
CPT/HCPCS: 64718; 64721; A4209; A4364; A4930; A6402; A6449; J2370; J2405; J2704; J3010; J3490; A4222; A4452; A6452